=== PATIENT | male | born 1960 | race Caucasian/White ===

== ENCOUNTER → 2020-09-15 | Outpatient (CLI) | payer BC ==
[~2020-09-15] MED LIST: /AUGM25TA; DEPAKOT250 PO; FLAG500T; IMITREX50 PO; NAPROSY500 PO; No Historical Meds; [UNRECOGNIZED DRUG - CODE] PO
== END ==
LOC: M LABSMTC 10:13
PROVIDERS: ATTEND Family Medicine
DX: Z20.828 Contact with and (suspected) exposure to other viral communicable diseases (principal)

== ENCOUNTER → 2020-11-11 | Outpatient (REF) | payer BC ==
[2020-11-11 12:45] LABS: BASO % 0.6 % (0.0-1.0); EOS # 0.1 10^3/uL (0.0-0.5); EOS % 1.9 % (0.0-3.0); HEMATOCRIT 47.6 % (42.0-52.0); HEMOGLOBIN 16.2 g/dl (13.5-17.5); LYMPH # 2.3 10^3/uL (1.5-5.0); LYMPH % 37.8 % (24.0-44.0); MEAN CORPUSCULAR HEMOGLOBIN 32.3 pg (27.0-33.0); MEAN CORPUSCULAR VOLUME 94.8 fl (80.0-96.0); MONO # 0.7 10^3/uL (0.0-0.8); MONO % 10.7 % (2.0-8.0); NEUTROPHILS % 48.5 % (36.0-66.0); PLATELET COUNT, AUTOMATED 326 10^3/uL (150-450); RED BLOOD COUNT 5.02 10^6/uL (4.30-6.10); WHITE BLOOD COUNT 6.2 10^3/uL (4.0-10.0)
[2020-11-11 13:31] LABS: ALBUMIN 3.9 GM/DL (3.2-5.2); ALT/SGPT 37 U/L (12-78); BILIRUBIN,TOTAL 0.3 MG/DL (0.2-1.0); BLOOD UREA NITROGEN 8 MG/DL (7-18); CALCIUM LEVEL 9.1 MG/DL (8.5-10.1); CARBON DIOXIDE LEVEL 27 MEQ/L (21-32); CHLORIDE LEVEL 106 MEQ/L (98-107); CHOLESTEROL LEVEL 168 MG/DL (<200); CHOLESTEROL RISK RATIO 3.428 (<5); CREATININE FOR GFR 1.01 MG/DL (0.70-1.30); GLOMERULAR FILTRATION RATE > 60.0 (>56); GLUCOSE, FASTING 101 MG/DL (70-100); HDL CHOLESTEROL 49 MG/DL (>40); LDL CHOLESTEROL 107 MG/DL (<100); NON-HDL-C 119 MG/DL; POTASSIUM SERUM 5.3 MEQ/L (3.5-5.1); SODIUM LEVEL 140 MEQ/L (136-145); TOTAL PROTEIN 7.4 GM/DL (6.4-8.2); TRIGLYCERIDES LEVEL 60 MG/DL (<150)
== END ==
LOC: M SFHCADAM 08:28
PROVIDERS: ATTEND Physician Assistant
DX: F17.210 Nicotine dependence, cigarettes, uncomplicated (principal); F10.10 Alcohol abuse, uncomplicated; Z12.5 Encounter for screening for malignant neoplasm of prostate; E78.6 Lipoprotein deficiency; Z13.1 Encounter for screening for diabetes mellitus

== ENCOUNTER → 2020-12-09 | Outpatient (CLI) | payer BC ==
--- NOTE | 2020-12-09 08:01 | REP ---
INDICATION: CIGARETTE NICOTINE DEPENDENCE COMPARISON: None. TECHNIQUE: Axial noncontrast images from the thoracic inlet to the upper abdomen using low-dose lung screening technique (LDCT). FINDINGS: The bilateral lung micthell are essentially well aerated, symmetric and clear. There is a very small hazy non solid opacity 8 mm in the right apex (image 16). No consolidation, suspicious nodule or mass lesion. No pleural effusion. No pneumothorax. Tracheobronchial tree is patent. IMPRESSION: Lung-RADS category 2. Management recommendations include annual low-dose CT evaluation. <Electronically signed by Anthony Diaz > 12/09/20 [id number]
== END ==
LOC: M RAD 06:56
PROVIDERS: ATTEND Physician Assistant
DX: Z12.2 Encounter for screening for malignant neoplasm of respiratory organs (principal); F17.210 Nicotine dependence, cigarettes, uncomplicated

== ENCOUNTER → 2020-12-31 | Outpatient (CLI) | payer BC | LOC: M LABSMTC 09:00 | PROVIDERS: ATTEND Anesthesiology | DX: Z01.812 Encounter for preprocedural laboratory examination (principal); Z20.822 Contact with and (suspected) exposure to COVID-19 ==

== ENCOUNTER 2021-01-05 10:00 | Day surgery (SDC) | payer BC ==
[~2021-01-05] VITALS: Ht 175.3 cm; Wt 87.1 kg
[~2021-01-05 10:00] MED LIST changes: +LIDOCAINE 2% 100MG/5ML SDV (FOR ANES.) As Ordered ONE; +NS 1,000 ML IV ONE; +propofoL 200 MG/20 ML VIAL As Ordered ONE
--- NOTE | 2021-01-05 10:59 | ROOR ---
Patient Name: Aldo Zurita Procedure Date: 01/05/2021 10:42 AM Date of : 1960 Age: 60 Room: [facility] Gender: Male Note Status: Finalized Procedure: Colonoscopy Indications: High risk colon cancer surveillance: Personal history of colonic polyps Providers: Ross Madison Jr, MD Referring MD: JEFF Nava Requesting Provider: Medicines: Propofol per Anesthesia Complications: No immediate complications. Procedure: Pre-Anesthesia Assessment: - Prior to the procedure, a History and Physical was performed, and patient medications and allergies were reviewed. The patient is competent. The risks and benefits of the procedure and the sedation options and risks were discussed with the patient. All questions were answered and informed consent was obtained. Patient identification and proposed procedure were verified by the physician and the nurse in the pre-procedure area and in the procedure room. Mental Status Examination: alert and oriented. Airway Examination: normal oropharyngeal airway and neck mobility. Respiratory Examination: clear to auscultation. CV Examination: normal. ASA Grade Assessment: II - A patient with mild systemic disease. After reviewing the risks and benefits, the patient was deemed in satisfactory condition to undergo the procedure. The anesthesia plan was to use moderate sedation / analgesia (conscious sedation). Immediately prior to administration of medications, the patient was re-assessed for adequacy to receive sedatives. The heart rate, respiratory rate, oxygen saturations, blood pressure, adequacy of pulmonary ventilation, and response to care were monitored throughout the procedure. The physical status of the patient was re-assessed after the procedure. The Colonoscope was introduced through the anus and advanced to the cecum, identified by appendiceal orifice and ileocecal valve. The colonoscopy was performed without difficulty. The patient tolerated the procedure well. The quality of the bowel preparation was adequate. Findings: The rectum, descending colon, transverse colon, cecum, appendiceal orifice and ileocecal valve appeared normal. Three polyps were found in the recto-sigmoid colon and ascending colon. The polyps were small in size. These polyps were removed with a cold snare. Resection and retrieval were complete. A few small-mouthed diverticula were found in the sigmoid colon. Impression: - The rectum, descending colon, transverse colon, cecum, appendiceal orifice and ileocecal valve are normal. - Three small polyps at the recto-sigmoid colon and in the ascending colon, removed with a cold snare. Resected and retrieved. - Diverticulosis in the sigmoid colon. Recommendation: - Discharge patient to home (ambulatory). - Repeat colonoscopy in 5-10 years for surveillance based on pathology results. Procedure Code(s): --- Professional --- 02679, Colonoscopy, flexible; with removal of tumor(s), polyp(s), or other lesion(s) by snare technique Diagnosis Code(s): --- Professional --- Z86.010, Personal history of colonic polyps K63.5, Polyp of colon K57.30, Diverticulosis of large intestine without perforation or abscess without bleeding CPT copyright 2019 [employer]. All rights reserved. The codes documented in this report are preliminary and upon inpatient coder review may be revised to meet current compliance requirements. Ross Madison MD Ross Madison Jr, MD 01/05/2021 10:58:53 AM Electronically signed by Ross Madison Jr, MD Number of Addenda: 0 Note Initiated On: 01/05/2021 10:42 AM Estimated Blood Loss: Estimated blood loss: none.
[2021-01-05 11:15] VITALS: BP 146/89
== END 2021-01-05 11:24 | disposition home or self-care (01) ==
LOC: M OPP 10:00
PROVIDERS: ATTEND Surgery
DX: Z12.11 Encounter for screening for malignant neoplasm of colon (principal); Z86.010 Personal history of colon polyps; K63.5 Polyp of colon; K57.30 Diverticulosis of large intestine without perforation or abscess without bleeding; F17.210 Nicotine dependence, cigarettes, uncomplicated

== ENCOUNTER → 2021-10-23 | Outpatient (REF) | payer BC ==
[~2021-10-23] MED LIST changes: -LIDOCAINE 2% 100MG/5ML SDV (FOR ANES.) As Ordered ONE; -NS 1,000 ML IV ONE; -propofoL 200 MG/20 ML VIAL As Ordered ONE
[2021-10-23 13:39] LABS: HEMATOCRIT 46.8 % (42.0-52.0); MEAN CORPUSCULAR HEMOGLOBIN 32.9 pg (27.0-33.0); MEAN CORPUSCULAR HGB CONC 34.2 g/dl (32.0-36.5); MEAN CORPUSCULAR VOLUME 96.3 fl (80.0-96.0); PLATELET COUNT, AUTOMATED 293 10^3/uL (150-450); RED BLOOD COUNT 4.86 10^6/uL (4.30-6.10); WHITE BLOOD COUNT 6.1 10^3/uL (4.0-10.0)
[2021-10-23 14:31] LABS: ALT/SGPT 43 U/L (12-78); BILIRUBIN,TOTAL 0.3 MG/DL (0.2-1.0); BLOOD UREA NITROGEN 13 MG/DL (7-18); CARBON DIOXIDE LEVEL 26 MEQ/L (21-32); CHLORIDE LEVEL 104 MEQ/L (98-107); CHOLESTEROL LEVEL 155 MG/DL (<200); CREATININE FOR GFR 0.86 MG/DL (0.70-1.30); GLOMERULAR FILTRATION RATE > 60.0 (>49); GLUCOSE, FASTING 102 MG/DL (70-100); HDL CHOLESTEROL 63 MG/DL (>40); NON-HDL-C 92 MG/DL; POTASSIUM SERUM 4.5 MEQ/L (3.5-5.1); SODIUM LEVEL 137 MEQ/L (136-145); TRIGLYCERIDES LEVEL 43 MG/DL (<150)
[2021-10-23 14:32] LABS: ALBUMIN 3.8 GM/DL (3.2-5.2); LDL CHOLESTEROL 83 MG/DL (<100); TOTAL PROTEIN 6.9 GM/DL (6.4-8.2)
== END ==
LOC: M SFHCADAM 07:55
PROVIDERS: ATTEND Physician Assistant
DX: Z12.5 Encounter for screening for malignant neoplasm of prostate (principal); F17.210 Nicotine dependence, cigarettes, uncomplicated; Z13.1 Encounter for screening for diabetes mellitus; E78.6 Lipoprotein deficiency
CPT/HCPCS: 80053; 80061; 85027; G0103

== ENCOUNTER 2021-12-19 11:55 | Emergency (ER) | payer BC, OTHER ==
[~2021-12-19] VITALS: Ht 175.3 cm; Wt 81.9 kg
[2021-12-19] MEDS ORDERED: SILD100T (13:38)
[2021-12-19 14:17] LABS: BASO # 0.1 10^3/uL (0.0-0.2); BASO % 0.8 % (0.0-1.0); EOS # 0.1 10^3/uL (0.0-0.5); EOS % 0.7 % (0.0-3.0); HEMATOCRIT 48.1 % (42.0-52.0); HEMOGLOBIN 16.5 g/dl (13.5-17.5); LYMPH # 2.6 10^3/uL (1.5-5.0); LYMPH % 29.5 % (24.0-44.0); MEAN CORPUSCULAR HEMOGLOBIN 32.7 pg (27.0-33.0); MEAN CORPUSCULAR HGB CONC 34.3 g/dl (32.0-36.5); MEAN CORPUSCULAR VOLUME 95.2 fl (80.0-96.0); MONO # 0.6 10^3/uL (0.0-0.8); MONO % 6.9 % (2.0-8.0); NEUTROPHILS # 5.5 10^3/uL (1.5-8.5); NEUTROPHILS % 61.8 % (36.0-66.0); PLATELET COUNT, AUTOMATED 290 10^3/uL (150-450); RED BLOOD COUNT 5.05 10^6/uL (4.30-6.10); WHITE BLOOD COUNT 8.9 10^3/uL (4.0-10.0)
[2021-12-19 14:45] LABS: ALBUMIN 4.2 GM/DL (3.2-5.2); BILIRUBIN,DIRECT 0.2 MG/DL (0.0-0.2); BILIRUBIN,TOTAL 0.5 MG/DL (0.2-1.0); THYROID STIMULATING HORMONE 1.96 uIU/ML (0.358-3.740); TOTAL PROTEIN 7.6 GM/DL (6.4-8.2)
[2021-12-19 14:55] LABS: MAGNESIUM LEVEL 2.2 MG/DL (1.8-2.4)
[2021-12-19] MEDS ORDERED: ACETAMINOPHEN 500 MG TAB PO ONE (15:15)
[2021-12-19] MEDS ORDERED: NS 1,000 ML IV ONE (15:15)
[2021-12-19] MEDS ORDERED: METOCLOPRAMIDE INJ 10MG/2ML VIAL (J2765 PER 1) IV ONE (15:15)
[2021-12-19] MEDS ORDERED: MECLIZINE 25 MG TABLET PO ONE (15:15)
[2021-12-19 16:58] LABS: CK-MB VALUE MASS < 1.0 NG/ML (<3.6); CPK CREATINE PHOSPHOKINASE 97 U/L (39-308); MB/CK RELATIVE INDEX 1.03 (< OR =4)
[2021-12-19] MEDS ORDERED: KETOROLAC 30 MG/ML 1ML VIAL IV ONE (18:15)
[2021-12-19] MEDS ORDERED: REGL10TA6 PO (20:46)
[2021-12-19] MEDS ORDERED: MECL1TAB31 PO (20:47)
[2021-12-19 20:50] VITALS: BP 131/83
== END 2021-12-19 21:03 | disposition home or self-care (01) ==
LOC: M ED 11:55
DX: R51.9 Headache, unspecified (principal); R42 Dizziness and giddiness; M62.81 Muscle weakness (generalized); F17.200 Nicotine dependence, unspecified, uncomplicated; F10.10 Alcohol abuse, uncomplicated; K57.92 Diverticulitis of intestine, part unspecified, without perforation or abscess without bleeding; Z79.899 Other long term (current) drug therapy
CPT/HCPCS: 70450; 72148; 80047; 80076; 82140; 82550; 82553; 82607; 83735; 84443; 85025; 93005; 96361; 96374; 96375; 99284; J1885; J2765

== ENCOUNTER → 2021-12-21 | Outpatient (REF) | payer OTHER ==
[~2021-12-21] MED LIST changes: +MECL1TAB31 PO; +REGL10TA6 PO; +SILD100T
[2021-12-21 13:14] LABS: BLOOD UREA NITROGEN 12 MG/DL (7-18); CARBON DIOXIDE LEVEL 31 MEQ/L (21-32); CHLORIDE LEVEL 107 MEQ/L (98-107); GLOMERULAR FILTRATION RATE > 60.0 (>49); GLUCOSE, FASTING 84 MG/DL (70-100); POTASSIUM SERUM 4.8 MEQ/L (3.5-5.1); SODIUM LEVEL 141 MEQ/L (136-145); TOTAL PROTEIN 6.7 GM/DL (6.4-8.2)
[2021-12-22 18:08] LABS: FREE KAPPA LIGHT CHAINS SERUM 20.3 mg/L (3.3-19.4); KAPPA/LAMBDA RATIO SERUM 1.27 (0.26-1.65)
== END ==
LOC: M SFHCADAM 08:39
PROVIDERS: ATTEND Physician Assistant
DX: G43.911 Migraine, unspecified, intractable, with status migrainosus (principal); F10.10 Alcohol abuse, uncomplicated; F17.210 Nicotine dependence, cigarettes, uncomplicated; R42 Dizziness and giddiness; D47.1 Chronic myeloproliferative disease

== ENCOUNTER → 2021-12-22 | Outpatient (CLI) | payer OTHER | LOC: M RAD 07:01 | PROVIDERS: ATTEND Physician Assistant | DX: F17.210 Nicotine dependence, cigarettes, uncomplicated (principal) ==

== ENCOUNTER → 2022-01-17 | Outpatient (REF) | payer OTHER ==
[2022-01-17 13:12] LABS: BLOOD UREA NITROGEN 15 MG/DL (7-18); CALCIUM LEVEL 8.7 MG/DL (8.8-10.2); CARBON DIOXIDE LEVEL 28 MEQ/L (21-32); CHLORIDE LEVEL 109 MEQ/L (98-107); CREATININE FOR GFR 0.96 MG/DL (0.70-1.30); GLOMERULAR FILTRATION RATE > 60.0 (>49); GLUCOSE, FASTING 89 MG/DL (70-100); POTASSIUM SERUM 4.5 MEQ/L (3.5-5.1); SODIUM LEVEL 141 MEQ/L (136-145)
== END ==
LOC: M SFHCADAM 07:46
PROVIDERS: ATTEND Physician Assistant
DX: D47.1 Chronic myeloproliferative disease (principal)

== ENCOUNTER → 2022-01-31 | Outpatient (CLI) | payer OTHER ==
[~2022-01-31] MED LIST changes: +PROHANCE 279.3MG/ML 15ML VIAL As Ordered ONE; +PROHANCE 279.3MG/ML 5ML VIAL As Ordered ONE
== END ==
LOC: M RAD 07:27
PROVIDERS: ATTEND Physician Assistant
DX: G43.911 Migraine, unspecified, intractable, with status migrainosus (principal)
CPT/HCPCS: 70553; A9576

== ENCOUNTER → 2022-02-21 | Outpatient (CLI) | payer OTHER ==
[~2022-02-21] MED LIST changes: +LIDOCAINE 1% MDV 20ML VIAL As Ordered ONE; -PROHANCE 279.3MG/ML 15ML VIAL As Ordered ONE; -PROHANCE 279.3MG/ML 5ML VIAL As Ordered ONE
[2022-02-21 12:50] LABS: BASO # 0.1 10^3/uL (0.0-0.2); BASO % 0.7 % (0.0-1.0); EOS # 0.1 10^3/uL (0.0-0.5); EOS % 0.8 % (0.0-3.0); HEMATOCRIT 43.6 % (42.0-52.0); HEMOGLOBIN 15.4 g/dl (13.5-17.5); LYMPH # 2.3 10^3/uL (1.5-5.0); MEAN CORPUSCULAR HEMOGLOBIN 33.6 pg (27.0-33.0); MEAN CORPUSCULAR HGB CONC 35.3 g/dl (32.0-36.5); MONO # 0.7 10^3/uL (0.0-0.8); NEUTROPHILS # 4.2 10^3/uL (1.5-8.5); NEUTROPHILS % 58.2 % (36.0-66.0); PLATELET COUNT, AUTOMATED 270 10^3/uL (150-450); RED BLOOD COUNT 4.59 10^6/uL (4.30-6.10); WHITE BLOOD COUNT 7.3 10^3/uL (4.0-10.0)
[2022-02-21 13:24] VITALS: BP 165/86
== END ==
LOC: M IRPRO 12:03
PROVIDERS: ATTEND Specialist
DX: R93.7 Abnormal findings on diagnostic imaging of other parts of musculoskeletal system (principal)

== ENCOUNTER → 2022-06-12 | Outpatient (CLI) | payer OTHER ==
[~2022-06-12] MED LIST changes: -LIDOCAINE 1% MDV 20ML VIAL As Ordered ONE
== END ==
LOC: M SOG 07:50
PROVIDERS: ATTEND Physician Assistant
DX: M79.641 Pain in right hand (principal); M79.642 Pain in left hand

== ENCOUNTER → 2022-06-13 | Outpatient (CLI) | payer OTHER | LOC: M LABSMTC 09:18 | PROVIDERS: ATTEND Anesthesiology | DX: Z01.818 Encounter for other preprocedural examination (principal); Z11.52 Encounter for screening for COVID-19 ==

== ENCOUNTER 2022-06-18 06:17 | Day surgery (SDC) | payer OTHER ==
[~2022-06-18] VITALS: Ht 175.3 cm; Wt 81.2 kg
[2022-06-18] MEDS ORDERED: BUPIVACAINE HCL 0.25% 30ML VIAL As Ordered ONE (06:48)
[2022-06-18] MEDS ORDERED: ONDANSETRON 4MG 2ML VIAL As Ordered ONE (07:37)
[2022-06-18] MEDS ORDERED: fentaNYL 100 MCG/2 ML INJECTION As Ordered ONE (07:37)
[2022-06-18] MEDS ORDERED: MIDAZOLAM INJ 2MG/2ML VIAL (J2250 PER 1MG) As Ordered ONE (07:37)
[2022-06-18] MEDS ORDERED: dexameTHASONE 4 MG/ML 1ML VIAL (J1100 PER 1MG) As Ordered ONE (07:37)
[2022-06-18] MEDS ORDERED: propofoL 200 MG/20 ML VIAL As Ordered ONE (07:37)
[2022-06-18] MEDS ORDERED: LIDOCAINE 2% 100MG/5ML SDV (FOR ANES.) As Ordered ONE (07:37)
[2022-06-18] MEDS ORDERED: KETOROLAC 60MG 2ML VIAL As Ordered ONE (07:37)
[2022-06-18] MEDS ORDERED: oxyCODONE 5MG TAB PO PRN (08:00)
[2022-06-18] MEDS ORDERED: fentaNYL 100 MCG/2 ML INJECTION IV PRN (08:00)
[2022-06-18] MEDS ORDERED: LR 1,000 ML IV SCH (08:00)
[2022-06-18] MEDS ORDERED: ONDANSETRON 4MG 2ML VIAL IV PRN (08:00)
[2022-06-18] MEDS ORDERED: MORPHINE 2 MG/ML 1ML VIAL IV PRN (08:00)
[2022-06-18 08:52] VITALS: BP 148/83
== END 2022-06-18 09:26 | disposition home or self-care (01) ==
LOC: M SDC 06:17
PROVIDERS: ATTEND Orthopaedic Surgery Hand Surgery
DX: G56.01 Carpal tunnel syndrome, right upper limb (principal); R50.9 Fever, unspecified; F17.210 Nicotine dependence, cigarettes, uncomplicated
CPT/HCPCS: 29848; J1100; J1885; J2250; J2405; J3010

== ENCOUNTER 2023-03-16 08:20 | Emergency (ER) | payer OTHER ==
[~2023-03-16] VITALS: Ht 175.3 cm; Wt 87.2 kg
[2023-03-16] MEDS ORDERED: BENZONATATE 100MG CAPSULE PO ONE (10:00)
[2023-03-16] MEDS: IPRATROPIUM 0.5MG/ALBUTEROL 2.5MG INH SOL UD 3ML (DUONEB) NEB PRN ×2 (10:13→10:32)
[2023-03-16 10:20] LABS: VENOUS HCO3 26.5 MMOL/L (23.0-27.0); VENOUS O2 SATURATION 58.9 % (60.0-80.0); VENOUS PARTIAL PRESSURE CO2 49.8 mmHg (38.0-50.0); VENOUS PARTIAL PRESSURE O2 32.2 mmHg (30.0-50.0); VENOUS PH 7.344 UNITS (7.330-7.430); VENOUS STANDARD HCO3 23.4 MMOL/L
[2023-03-16 10:27] LABS: BASO # 0.1 10^3/uL (0.0-0.2); BASO % 0.6 % (0.0-1.0); EOS # 0.1 10^3/uL (0.0-0.5); EOS % 0.8 % (0.0-3.0); HEMATOCRIT 44.6 % (42.0-52.0); HEMOGLOBIN 15.1 g/dl (13.5-17.5); LYMPH # 1.7 10^3/uL (1.5-5.0); LYMPH % 17.9 % (24.0-44.0); MEAN CORPUSCULAR HEMOGLOBIN 30.6 pg (27.0-33.0); MEAN CORPUSCULAR HGB CONC 33.9 g/dl (32.0-36.5); MEAN CORPUSCULAR VOLUME 90.3 fl (80.0-96.0); MONO # 0.8 10^3/uL (0.0-0.8); MONO % 8.3 % (2.0-8.0); NEUTROPHILS # 6.9 10^3/uL (1.5-8.5); NEUTROPHILS % 72.1 % (36.0-66.0); PLATELET COUNT, AUTOMATED 357 10^3/uL (150-450); RED BLOOD COUNT 4.94 10^6/uL (4.30-6.10); WHITE BLOOD COUNT 9.6 10^3/uL (4.0-10.0)
[2023-03-16 10:53] LABS: BLOOD UREA NITROGEN 11 MG/DL (9-23); CALCIUM LEVEL 9.6 MG/DL (8.3-10.6); CARBON DIOXIDE LEVEL 27 MMOL/L (20-31); CHLORIDE LEVEL 100 MMOL/L (98-107); CREATININE FOR GFR 0.79 MG/DL (0.70-1.30); GLOMERULAR FILTRATION RATE > 60.0 (>49); GLUCOSE, FASTING 100 MG/DL (74-106); POTASSIUM SERUM 5.4 MMOL/L (3.5-5.1); SODIUM LEVEL 132 MMOL/L (136-145)
[2023-03-16] MEDS ORDERED: ISOVUE-370 76% 100ML VIAL As Ordered ONE (11:34)
[2023-03-16] MEDS ORDERED: NEBU1EAC78 MC (13:31)
[2023-03-16] MEDS ORDERED: ALBU8.5H INH (13:31)
[2023-03-16] MEDS ORDERED: BREAMIS10 MC (13:31)
[2023-03-16] MEDS ORDERED: ALBU2.5V10 NEB (13:31)
[2023-03-16] MEDS ORDERED: BENZ200C70 PO (13:31)
[2023-03-16 13:36] VITALS: BP 145/86; TEMP 97.8; O2SAT 98
== END 2023-03-16 13:41 | disposition home or self-care (01) ==
LOC: M ED 08:20
DX: D14.30 Benign neoplasm of unspecified bronchus and lung (principal); R04.2 Hemoptysis; F17.200 Nicotine dependence, unspecified, uncomplicated; F10.10 Alcohol abuse, uncomplicated; Z79.52 Long term (current) use of systemic steroids; Z79.899 Other long term (current) drug therapy
CPT/HCPCS: 36415; 71046; 71275; 80048; 82803; 83605; 85025; 87486; 87581; 87633; 87798; 94640; 99284; Q9967

== ENCOUNTER → 2023-03-28 | Outpatient (CLI) | payer OTHER ==
[~2023-03-28] MED LIST changes: +ALBU2.5V10 NEB; +ALBU8.5H INH; +BENZ200C70 PO; +BREAMIS10 MC; +NEBU1EAC78 MC
[2023-03-28 11:09] LABS: BLOOD UREA NITROGEN 15 MG/DL (9-23); CALCIUM LEVEL 9.8 MG/DL (8.3-10.6); CARBON DIOXIDE LEVEL 28 MMOL/L (20-31); CHLORIDE LEVEL 102 MMOL/L (98-107); CREATININE FOR GFR 0.85 MG/DL (0.70-1.30); GLOMERULAR FILTRATION RATE > 60.0 (>49); GLUCOSE, FASTING 95 MG/DL (74-106); SODIUM LEVEL 132 MMOL/L (136-145)
[2023-03-28 11:15] LABS: INR 0.95; PROTHROMBIN TIME 12.9 SECONDS (12.5-14.5)
== END ==
LOC: M PLALAB 07:24
PROVIDERS: ATTEND Internal Medicine Critical Care Medicine
DX: R91.8 Other nonspecific abnormal finding of lung field (principal)

== ENCOUNTER 2023-04-10 09:39 | Day surgery (SDC) | payer OTHER ==
[~2023-04-10] VITALS: Ht 175.3 cm; Wt 84.4 kg
[2023-04-10] MEDS ORDERED: LIDOCAINE PRES-FREE 2% 10ML AMP INH ONE (10:30)
[2023-04-10] MEDS ORDERED: ALBUTEROL SULFATE 2.5MG/0.5ML INH NEB SOLN INH ONE (10:30)
[2023-04-10] MEDS ORDERED: ROCURONIUM BROMIDE 50MG/5ML VIAL As Ordered ONE (10:41)
[2023-04-10] MEDS ORDERED: ONDANSETRON 4MG 2ML VIAL As Ordered ONE (10:41)
[2023-04-10] MEDS ORDERED: SUGAMMADEX SODIUM 500 MG/5 ML VIAL (BRIDION) As Ordered ONE (10:41)
[2023-04-10] MEDS ORDERED: propofoL 200 MG/20 ML VIAL As Ordered ONE (10:41)
[2023-04-10] MEDS ORDERED: LIDOCAINE 2% 100MG/5ML SDV (FOR ANES.) As Ordered ONE (10:41)
[2023-04-10] MEDS ORDERED: MIDAZOLAM INJ 2MG/2ML VIAL As Ordered ONE (10:44)
[2023-04-10] MEDS ORDERED: fentaNYL 100 MCG/2 ML INJECTION As Ordered ONE (10:44)
[2023-04-10] MEDS ORDERED: CETACAINE SPRAY 5GM As Ordered ONE (11:45)
[2023-04-10] MEDS ORDERED: ONDANSETRON 4MG 2ML VIAL IV PRN (12:55)
[2023-04-10] MEDS ORDERED: oxyCODONE 5MG TAB PO PRN (12:55)
[2023-04-10] MEDS ORDERED: LR 1,000 ML IV SCH (12:55)
[2023-04-10] MEDS ORDERED: THROMBIN 5,000 UNITS VIAL As Ordered ONE (13:41)
[2023-04-10] MEDS ORDERED: EPINEPHrine 1MG/10ML SYRINGE 1.5IN As Ordered ONE (13:41)
[2023-04-10 14:22] VITALS: BP 145/72; TEMP 97.7; O2SAT 98
[2023-05-08] MEDS ORDERED: ALBU8.5H INH (09:17)
[2023-05-08] MEDS ORDERED: ALBU2.5V10 INH (09:17)
== END 2023-04-10 14:30 | disposition home or self-care (01) ==
LOC: M SDC 09:39
PROVIDERS: ATTEND Internal Medicine Critical Care Medicine
DX: J90 Pleural effusion, not elsewhere classified (principal); C34.11 Malignant neoplasm of upper lobe, right bronchus or lung; F17.210 Nicotine dependence, cigarettes, uncomplicated; B20 Human immunodeficiency virus [HIV] disease; Z79.51 Long term (current) use of inhaled steroids
CPT/HCPCS: 31623; 31624; 31654; 71045; 87070; 87102; 87116; 87205; 87206; 88104; 88108; 88173; 88313; J0171; J1100; J2250; J2405; J3010

== ENCOUNTER → 2023-04-10 | Outpatient (CLI) | payer OTHER ==
[~2023-04-10] MED LIST changes: +NICO1DIS12 TOP
== END ==
LOC: M RAD 09:25
PROVIDERS: ATTEND Internal Medicine Critical Care Medicine
DX: R91.8 Other nonspecific abnormal finding of lung field (principal)

== ENCOUNTER → 2023-04-30 | Outpatient (CLI) | payer OTHER ==
[2023-04-30 10:20] LABS: PLATELET COUNT, AUTOMATED 353 10^3/uL (150-450)
[2023-04-30 10:30] LABS: INR 0.96
[2023-04-30 10:31] LABS: PARTIAL THROMBOPLASTIN TIME 31.6 SECONDS (24.8-34.2)
== END ==
LOC: M PLALAB 08:35
PROVIDERS: ATTEND Internal Medicine Critical Care Medicine
DX: Z01.812 Encounter for preprocedural laboratory examination (principal); J90 Pleural effusion, not elsewhere classified; C34.11 Malignant neoplasm of upper lobe, right bronchus or lung

== ENCOUNTER → 2023-05-03 | Outpatient (CLI) | payer OTHER ==
[~2023-05-03] MED LIST changes: +ACETAMINOPHEN 325 MG TAB As Ordered ONE; +ACETAMINOPHEN TAB 650MG DOSE (2X325MG) PO ONE; +LIDOCAINE W/EPINEPHRINE 1% 20ML VIAL As Ordered ONE; +MIDAZOLAM INJ 2MG/2ML VIAL As Ordered ONE; +NS 1,000 ML IV SCH; +ceFAZolin 2 GM/D5W 50 ML IV BAG As Ordered ONE; +ceFAZolin SOD 2 GM in IV 1 EA IV ONE; +fentaNYL 100 MCG/2 ML INJECTION As Ordered ONE
[2023-05-03 08:54] VITALS: TEMP 97.7
[2023-05-03 13:30] VITALS: BP 148/84; O2SAT 96
== END ==
LOC: M IRPRO 08:45
PROVIDERS: ATTEND Specialist
DX: R91.8 Other nonspecific abnormal finding of lung field (principal); R93.7 Abnormal findings on diagnostic imaging of other parts of musculoskeletal system
CPT/HCPCS: 36561; 99152; 99153; J0690; J2250; J3010

== ENCOUNTER → 2023-05-07 | Outpatient (CLI) | payer OTHER ==
[~2023-05-07] MED LIST changes: -ACETAMINOPHEN 325 MG TAB As Ordered ONE; -ACETAMINOPHEN TAB 650MG DOSE (2X325MG) PO ONE; +ALBU2.5V10 INH; -LIDOCAINE W/EPINEPHRINE 1% 20ML VIAL As Ordered ONE; -MIDAZOLAM INJ 2MG/2ML VIAL As Ordered ONE; -NS 1,000 ML IV SCH; -ceFAZolin 2 GM/D5W 50 ML IV BAG As Ordered ONE; -ceFAZolin SOD 2 GM in IV 1 EA IV ONE; -fentaNYL 100 MCG/2 ML INJECTION As Ordered ONE
== END ==
LOC: M PLARAD 07:33
PROVIDERS: ATTEND Specialist
DX: Z53.9 Procedure and treatment not carried out, unspecified reason (principal)

== ENCOUNTER → 2023-05-08 | Outpatient (CLI) | payer OTHER ==
[~2023-05-08] MED LIST changes: +HOME MED LIST COMPLETE! XX SCH; +LIDOCAINE 1% MDV 20ML VIAL As Ordered ONE
[2023-05-08 08:40] VITALS: TEMP 98
[2023-05-08 11:30] VITALS: BP 136/69; O2SAT 96
== END ==
LOC: M IRPRO 08:28
PROVIDERS: ATTEND Internal Medicine Critical Care Medicine
DX: C34.91 Malignant neoplasm of unspecified part of right bronchus or lung (principal); R91.8 Other nonspecific abnormal finding of lung field; J90 Pleural effusion, not elsewhere classified

== ENCOUNTER → 2023-05-13 | Outpatient (CLI) | payer OTHER ==
[~2023-05-13] MED LIST changes: -HOME MED LIST COMPLETE! XX SCH; -LIDOCAINE 1% MDV 20ML VIAL As Ordered ONE; +MECL-209 PO; -MECL1TAB31 PO
== END ==
LOC: M PLARAD 14:00
PROVIDERS: ATTEND Specialist
DX: C34.11 Malignant neoplasm of upper lobe, right bronchus or lung (principal)
CPT/HCPCS: 78815; A9552

== ENCOUNTER → 2023-05-31 | Outpatient (CLI) | payer OTHER ==
[~2023-05-31] MED LIST changes: -MECL-209 PO; +MECL1TAB31 PO
== END ==
LOC: M ONCR 09:58
PROVIDERS: ATTEND General Practice
DX: C34.11 Malignant neoplasm of upper lobe, right bronchus or lung (principal); R91.8 Other nonspecific abnormal finding of lung field; Z71.2 Person consulting for explanation of examination or test findings; Z79.899 Other long term (current) drug therapy; Z87.891 Personal history of nicotine dependence; Z95.828 Presence of other vascular implants and grafts

== ENCOUNTER → 2023-06-04 | Outpatient (REF) | payer OTHER ==
[~2023-06-04] MED LIST changes: +MECL-209 PO; -MECL1TAB31 PO
[2023-06-04 12:59] LABS: HEMATOCRIT 42.8 % (42.0-52.0); HEMOGLOBIN 14.1 g/dl (13.5-17.5); MEAN CORPUSCULAR HEMOGLOBIN 29.6 pg (27.0-33.0); MEAN CORPUSCULAR HGB CONC 32.9 g/dl (32.0-36.5); MEAN CORPUSCULAR VOLUME 89.9 fl (80.0-96.0); PLATELET COUNT, AUTOMATED 337 10^3/uL (150-450); RED BLOOD COUNT 4.76 10^6/uL (4.30-6.10); WHITE BLOOD COUNT 10.3 10^3/uL (4.0-10.0)
[2023-06-04 13:26] LABS: CHOLESTEROL RISK RATIO 4.23 (<5); HDL CHOLESTEROL 37.3 MG/DL (>40); LDL CHOLESTEROL 104.5 MG/DL (<100); NON-HDL-C 120.7 MG/DL; THYROID STIMULATING HORMONE 4.813 uIU/ML (0.55-4.78)
[2023-06-04 13:27] LABS: FREE T4 1.02 NG/DL (0.89-1.76)
== END ==
LOC: M LABDRWAD 12:25
PROVIDERS: ATTEND Physician Assistant
DX: E78.6 Lipoprotein deficiency (principal); F17.210 Nicotine dependence, cigarettes, uncomplicated; G43.911 Migraine, unspecified, intractable, with status migrainosus; Z12.5 Encounter for screening for malignant neoplasm of prostate

== ENCOUNTER → 2023-06-18 | Outpatient (CLI) | payer OTHER ==
[~2023-06-18] MED LIST changes: +PROHANCE 279.3MG/ML 15ML VIAL As Ordered ONE; +PROHANCE 279.3MG/ML 5ML VIAL As Ordered ONE
== END ==
LOC: M RAD 11:29
PROVIDERS: ATTEND General Practice
DX: C34.11 Malignant neoplasm of upper lobe, right bronchus or lung (principal)
CPT/HCPCS: 70553; A9576

== ENCOUNTER → 2023-07-30 | Outpatient (RCR) | payer OTHER ==
[~2023-07-30] MED LIST changes: +LIDO30CR18 TOP; +ONDA-84 PO; +PROC10TA5 PO; -PROHANCE 279.3MG/ML 15ML VIAL As Ordered ONE; -PROHANCE 279.3MG/ML 5ML VIAL As Ordered ONE
== END ==
LOC: M ONCR 07-02 11:19
PROVIDERS: ATTEND General Practice
DX: Z51.0 Encounter for antineoplastic radiation therapy (principal); C34.11 Malignant neoplasm of upper lobe, right bronchus or lung

== ENCOUNTER 2023-08-16 10:55 | Outpatient (RCR) | payer OTHER | END 2023-08-29 | LOC: M ONCR 10:55 | PROVIDERS: ATTEND General Practice | DX: Z51.0 Encounter for antineoplastic radiation therapy (principal); C34.11 Malignant neoplasm of upper lobe, right bronchus or lung ==

== ENCOUNTER → 2023-10-18 | Outpatient (CLI) | payer OTHER ==
[~2023-10-18] MED LIST changes: +ISOVUE-370 76% 100ML VIAL ONE
== END ==
LOC: M PLAIMG 07:53
PROVIDERS: ATTEND Internal Medicine Medical Oncology
DX: C34.90 Malignant neoplasm of unspecified part of unspecified bronchus or lung (principal)
CPT/HCPCS: 71260; Q9967

== ENCOUNTER → 2024-01-27 | Outpatient (CLI) | payer OTHER ==
[~2024-01-27] MED LIST changes: +BUDE0.254 NEB; +GASTROGRAFIN SOLUTION 30ML ONE
== END ==
LOC: M PLAIMG 09:08
PROVIDERS: ATTEND Internal Medicine Medical Oncology
DX: C34.90 Malignant neoplasm of unspecified part of unspecified bronchus or lung (principal); K76.89 Other specified diseases of liver
CPT/HCPCS: 71270; 74177; Q9963; Q9967

== ENCOUNTER → 2024-04-24 | Outpatient (CLI) | payer OTHER ==
[~2024-04-24] MED LIST changes: +BUDE10.7 INH; +DEXA4TA PO; -GASTROGRAFIN SOLUTION 30ML ONE; +ISOVUE-370 76% 100ML VIAL As Ordered ONE; -ISOVUE-370 76% 100ML VIAL ONE
== END ==
LOC: M RAD 12:18
PROVIDERS: ATTEND Specialist
DX: C34.91 Malignant neoplasm of unspecified part of right bronchus or lung (principal)
CPT/HCPCS: 71260; Q9967

== ENCOUNTER → 2024-05-21 | Outpatient (CLI) | payer OTHER ==
[~2024-05-21] MED LIST changes: -ISOVUE-370 76% 100ML VIAL As Ordered ONE
== END ==
LOC: M ONCR 11:14
PROVIDERS: ATTEND General Practice
DX: C34.11 Malignant neoplasm of upper lobe, right bronchus or lung (principal); C34.31 Malignant neoplasm of lower lobe, right bronchus or lung; G62.9 Polyneuropathy, unspecified; K59.03 Drug induced constipation; T45.1X5A Adverse effect of antineoplastic and immunosuppressive drugs, initial encounter; Z87.891 Personal history of nicotine dependence; Z79.52 Long term (current) use of systemic steroids; Z79.51 Long term (current) use of inhaled steroids; Z79.899 Other long term (current) drug therapy; Z92.21 Personal history of antineoplastic chemotherapy; Z92.3 Personal history of irradiation

== ENCOUNTER → 2024-07-08 | Outpatient (REF) | payer OTHER ==
[~2024-07-08] MED LIST changes: +BUDE0.5S6 NEB; +DIALTAB PO
[2024-07-08 13:26] LABS: PSA SCREENING 1.36 NG/ML (< 4.00)
[2024-07-08 13:32] LABS: FOLATE 10.2 NG/ML (>5.4)
[2024-07-08 13:44] LABS: HEMOGLOBIN A1c 5.7 % (4.0-6.0)
== END ==
LOC: M SFHCADAM 08:36
PROVIDERS: ATTEND Physician Assistant
DX: Z13.1 Encounter for screening for diabetes mellitus (principal); E83.42 Hypomagnesemia; G62.9 Polyneuropathy, unspecified; Z12.5 Encounter for screening for malignant neoplasm of prostate; E44.0 Moderate protein-calorie malnutrition; R00.0 Tachycardia, unspecified

== ENCOUNTER 2024-07-09 10:39 | Inpatient (IN) | payer OTHER ==
[~2024-07-09] VITALS: Ht 175.3 cm; Wt 73.8 kg
[~2024-07-09 10:39] MED LIST changes: -BUDE0.5S6 NEB
[2024-07-09 11:44] LABS: BASO % 0.4 % (0.0-1.0); EOS % 0.2 % (0.0-3.0); LYMPH # 1.2 10^3/uL (1.5-5.0); LYMPH % 10.7 % (24.0-44.0); MEAN CORPUSCULAR HEMOGLOBIN 24.3 pg (27.0-33.0); MEAN CORPUSCULAR VOLUME 81.1 fl (80.0-96.0); MONO # 1.1 10^3/uL (0.0-0.8); MONO % 9.8 % (2.0-8.0); NEUTROPHILS # 8.7 10^3/uL (1.5-8.5); NEUTROPHILS % 78.1 % (36.0-66.0); PLATELET COUNT, AUTOMATED 461 10^3/uL (150-450); WHITE BLOOD COUNT 11.2 10^3/uL (4.0-10.0)
[2024-07-09 12:39] LABS: BLOOD UREA NITROGEN 12 MG/DL (9-23); CHLORIDE LEVEL 97.9 MMOL/L (98-107); CREATININE FOR GFR 0.67 MG/DL (0.70-1.30); GLOMERULAR FILTRATION RATE > 60.0 (>49); GLUCOSE, FASTING 103 MG/DL (74-106); POTASSIUM SERUM 4.2 MMOL/L (3.5-5.1); SODIUM LEVEL 133 MMOL/L (136-145)
[2024-07-09 12:40] LABS: CALCIUM LEVEL 10.5 MG/DL (8.3-10.6); CARBON DIOXIDE LEVEL 29.6 MMOL/L (20-31)
[2024-07-09 12:41] LABS: THYROID STIMULATING HORMONE 2.784 uIU/ML (0.55-4.78)
[2024-07-09 12:57] LABS: CK-MB VALUE MASS 1.1 NG/ML (<3.6)
[2024-07-09 12:58] LABS: CPK CREATINE PHOSPHOKINASE 38 U/L (46-171); MB/CK RELATIVE INDEX 2.89 (< OR =4)
[2024-07-09 13:02] LABS: ALBUMIN 2.4 G/DL (3.2-5.2); ALKALINE PHOSPHATASE 192 U/L (46-116); ALT/SGPT 36 U/L (7.0-40); AST/SGOT 33 U/L (<34); BILIRUBIN,DIRECT 0.1 MG/DL (<0.4); BILIRUBIN,TOTAL 0.3 MG/DL (0.3-1.2); TOTAL PROTEIN 7.8 G/DL (5.7-8.2)
[2024-07-09] MEDS ORDERED: ISOVUE-370 76% 100ML VIAL As Ordered ONE (13:11)
[2024-07-09] MEDS: AZITHROMYCIN 250MG TABLET PO ONE (14:59)
[2024-07-09] MEDS: cefTRIAXone SOD 1 GM in DEXTROSE 5% (D5W) ADV/MINI-BAG 50 ML IV ONE (14:59)
[2024-07-09] MEDS ORDERED: ONDANSETRON 4MG ORAL DISINTEGRATING TAB SL PRN (15:55)
[2024-07-09] MEDS ORDERED: BUDE0.5S6 NEB (16:34)
[2024-07-09] MEDS ORDERED: HOME MED LIST COMPLETE! XX SCH (16:35)
[2024-07-09 17:59] LABS: PROCALCITONIN 0.08 ng/ml
[2024-07-09] MEDS: MORPHINE SULFATE ORAL SOLN 10 MG/5 ML UD PO PRN (19:31)
[2024-07-09] MEDS: SYMBICORT 160/4.5MCG INHALER 6GM INH SCH (20:00)
[2024-07-09] MEDS: IPRATROPIUM 0.5MG/ALBUTEROL 2.5MG INH SOL UD 3ML (DUONEB) NEB SCH (20:23)
[2024-07-09 21:37] VITALS: BP 123/71; TEMP 97.3; O2SAT 95
[2024-07-09] MEDS: GABAPENTIN 100 MG CAP PO SCH (22:29)
[2024-07-10 04:00] VITALS: BP 110/67; TEMP 97.5; O2SAT 96
[2024-07-10 11:00] VITALS: BP 110/70; TEMP 97; O2SAT 96
[2024-07-10] MEDS: AZITHROMYCIN 250MG TABLET PO SCH (14:29)
[2024-07-10] MEDS: MORPHINE 10MG/0.5ML ORAL CONCENTRATE SOLUTION U/D SL SCH (14:29)
[2024-07-10] MEDS: cefTRIAXone SOD 2 GM in DEXTROSE 5% (D5W) ADV/MINI-BAG 50 ML IV SCH (14:29)
[2024-07-10] MEDS: SODIUM CHLORIDE 0.9% INJ 10 ML SYR IV PRN (14:30)
[2024-07-10] MEDS: CALCIUM CARBONATE 500 MG CHEW U/D PO PRN (15:53)
[2024-07-10] MEDS: OMEPRAZOLE 20MG CAP PO SCH (15:53)
[2024-07-11] MEDS: AUGMENTIN 875 MG TAB PO SCH (08:33)
[2024-07-11] MEDS: SODIUM CHLORIDE 0.9% INJ 10 ML SYR IV SCH (08:33)
[2024-07-11] MEDS: MOM 30ML SUSPENSION UDC PO PRN (11:58)
[2024-07-11] MEDS: SENOKOT S TAB PO SCH (11:58)
[2024-07-11 12:00] VITALS: BP 126/81; TEMP 97.9; O2SAT 96
[2024-07-12] MEDS: MORPHINE SULFATE ORAL SOLN 10 MG/5 ML UD PO PRN (15:27)
[2024-07-12] MEDS: ONDANSETRON 4MG ORAL DISINTEGRATING TAB SL PRN (19:42)
[2024-07-12] MEDS ORDERED: MORPHINE 2 MG/ML 1ML VIAL IV PRN (20:45)
[2024-07-12] MEDS ORDERED: LORazepam 2 MG/ML 1ML VIAL IV PRN (20:45)
[2024-07-13] MEDS ORDERED: IPRATROPIUM 0.5MG/ALBUTEROL 2.5MG INH SOL UD 3ML (DUONEB) NEB SCH (08:00)
[2024-07-13] MEDS ORDERED: ALBUTEROL 90 MCG/ACT 8GM HFA INHALER INH PRN (12:50)
[2024-07-13] MEDS: MIRALAX *UNIT DOSE* 17GM PACKET PO SCH (13:07)
[2024-07-13] MEDS: ONDANSETRON 4MG ORAL DISINTEGRATING TAB PO SCH (13:07)
[2024-07-14] MEDS: IPRATROPIUM 0.5MG/ALBUTEROL 2.5MG INH SOL UD 3ML (DUONEB) NEB SCH (09:11)
[2024-07-14] MEDS ORDERED: MIRALAX *UNIT DOSE* 17GM PACKET PO PRN (11:10)
[2024-07-14] MEDS: SENOKOT S TAB PO SCH (20:47)
[2024-07-15] MEDS: MORPHINE 10MG/0.5ML ORAL CONCENTRATE SOLUTION U/D SL SCH (12:04)
[2024-07-16] MEDS: MORPHINE SULFATE ORAL SOLN 10 MG/5 ML UD PO PRN (10:20)
[2024-07-16] MEDS: LORazepam 1 MG TAB PO PRN (17:40)
[2024-07-20] MEDS: MORPHINE 10MG/0.5ML ORAL CONCENTRATE SOLUTION U/D SL SCH (13:30)
[2024-07-20] MEDS: MORPHINE SULFATE ORAL SOLN 10 MG/5 ML UD PO PRN (15:37)
[2024-07-21] MEDS ORDERED: HYOS125TA PO (09:13)
[2024-07-21] MEDS ORDERED: ONDA-282 PO (09:13)
[2024-07-21] MEDS ORDERED: ATIV1TAB10 PO (09:13)
[2024-07-21] MEDS ORDERED: GABA-1171 PO (09:13)
[2024-07-21] MEDS ORDERED: VENTAER INH (09:13)
[2024-07-21] MEDS ORDERED: SENN-52 PO (09:13)
[2024-07-21] MEDS ORDERED: MIRA33506 PO (09:13)
[2024-07-21] MEDS ORDERED: IPRA0.00 NEB (09:13)
[2024-07-21] MEDS ORDERED: OMEP-173 PO (09:13)
[2024-07-21] MEDS ORDERED: MORP1SOL5 PO (09:13)
[2024-07-21] MEDS ORDERED: SYMB16INH INH (09:13)
[2024-07-21] MEDS ORDERED: CALC200T15 PO (09:13)
[2024-07-21] MEDS ORDERED: MORP1SOL4 PO ×2 (09:17→11:55)
== END 2024-07-21 14:17 | disposition hospice, inpatient (51) | DRG 136 ==
LOC: M ED 10:39 → M ED INP 14:27 → M MSPAV 21:37
PROVIDERS: ADMIT Internal Medicine Nephrology; ATTEND Internal Medicine Nephrology
DX: C34.11 Malignant neoplasm of upper lobe, right bronchus or lung (principal); Z92.21 Personal history of antineoplastic chemotherapy; Z92.3 Personal history of irradiation; C78.01 Secondary malignant neoplasm of right lung; G62.9 Polyneuropathy, unspecified; Z87.891 Personal history of nicotine dependence; K57.90 Diverticulosis of intestine, part unspecified, without perforation or abscess without bleeding; K64.8 Other hemorrhoids; E43 Unspecified severe protein-calorie malnutrition; E87.1 Hypo-osmolality and hyponatremia; G89.3 Neoplasm related pain (acute) (chronic); E22.2 Syndrome of inappropriate secretion of antidiuretic hormone; J18.9 Pneumonia, unspecified organism; K21.9 Gastro-esophageal reflux disease without esophagitis; G43.909 Migraine, unspecified, not intractable, without status migrainosus; D64.9 Anemia, unspecified; G62.2 Polyneuropathy due to other toxic agents; Z51.5 Encounter for palliative care; R62.7 Adult failure to thrive; Z79.899 Other long term (current) drug therapy